=== PATIENT | male | born 1985 | race African-American/Black ===

== ENCOUNTER 2016-05-09 09:35 | Emergency (ER) | payer OTHER ==
[~2016-05-09] VITALS: Ht 195.6 cm; Wt 213.6 kg
[~2016-05-09 09:35] MED LIST: RISP1 PO
[2016-05-09] MEDS ORDERED: RISP1TAB89 PO (09:47)
[2016-05-09] MEDS ORDERED: NAPR500T3 PO (09:47)
[2016-05-09] MEDS ORDERED: KETOROLAC TROMETHAMINE 60 MG/2 ML VIAL IM ONE (10:45)
[2016-05-09 11:19] VITALS: BP 164/97
[2016-05-09 15:27] LABS: GLUCOSE,POINT OF CARE 127 MG/DL (70-110)
== END 2016-05-09 11:41 | disposition home or self-care (01) ==
LOC: EDUNIT# 09:35 → EMS 09:36
DX: S39.012A Strain of muscle, fascia and tendon of lower back, initial encounter (principal); E11.9 Type 2 diabetes mellitus without complications; E66.9 Obesity, unspecified; I10 Essential (primary) hypertension; F31.9 Bipolar disorder, unspecified; Z79.1 Long term (current) use of non-steroidal anti-inflammatories (NSAID); Z79.899 Other long term (current) drug therapy; X58.XXXA Exposure to other specified factors, initial encounter; Y93.89 Activity, other specified; Y99.8 Other external cause status; Y92.89 Other specified places as the place of occurrence of the external cause
CPT/HCPCS: 82962; 96372; 99283; J1885

== ENCOUNTER 2016-11-13 11:20 | Emergency (ER) | payer OTHER ==
[~2016-11-13] VITALS: Ht 193 cm; Wt 122.7 kg
[~2016-11-13 11:20] MED LIST changes: +NAPR500T3 PO; -RISP1 PO; +RISP1TAB89 PO
[2016-11-13 11:37] LABS: GLUCOSE,POINT OF CARE 121 MG/DL (70-110)
[2016-11-13] MEDS ORDERED: METF500T4 PO (11:40)
[2016-11-13] MEDS ORDERED: LISI-660 PO (11:40)
[2016-11-13 12:31] VITALS: BP 160/92
== END 2016-11-13 12:44 | disposition home or self-care (01) ==
LOC: EMS 11:24
DX: Z76.0 Encounter for issue of repeat prescription (principal); I10 Essential (primary) hypertension; E11.9 Type 2 diabetes mellitus without complications; F31.9 Bipolar disorder, unspecified; Z79.899 Other long term (current) drug therapy; Z87.891 Personal history of nicotine dependence
CPT/HCPCS: 82962; 99283

== ENCOUNTER 2017-02-14 17:33 | Emergency (ER) | payer OTHER ==
[~2017-02-14] VITALS: Ht 193 cm; Wt 209.1 kg
[~2017-02-14 17:33] MED LIST changes: +LISI-660 PO; +METF500T4 PO; -NAPR500T3 PO; +NAPR500T4 PO
[2017-02-14] MEDS ORDERED: GABA-531 PO (17:39)
[2017-02-14] MEDS ORDERED: ASPI81 PO (17:41)
[2017-02-14] MEDS ORDERED: RISP2 PO (20:06)
[2017-02-14] MEDS ORDERED: RisperiDONE 1 MG TABLET PO ONE (20:15)
[2017-02-14 20:24] VITALS: BP 154/89
== END 2017-02-14 20:31 | disposition home or self-care (01) ==
LOC: EMS 17:34
DX: Z76.0 Encounter for issue of repeat prescription (principal); E11.9 Type 2 diabetes mellitus without complications; I10 Essential (primary) hypertension; Z87.891 Personal history of nicotine dependence
CPT/HCPCS: 99283

== ENCOUNTER 2017-10-23 22:16 | Emergency (ER) | payer OTHER ==
[~2017-10-23] VITALS: Ht 193 cm; Wt 175.0 kg
[~2017-10-23 22:16] MED LIST changes: +ASPI81 PO; +GABA-531 PO; -METF500T4 PO; +METF500T6 PO; -NAPR500T4 PO; -RISP1TAB89 PO; +RISP2 PO
[2017-10-23] MEDS ORDERED: FURO20 PO (22:41)
[2017-10-23] MEDS ORDERED: FAMO20TA8 PO (22:41)
[2017-10-23] MEDS ORDERED: RISP2L PO (22:41)
[2017-10-23 22:43] LABS: GLUCOSE,POINT OF CARE 98 MG/DL (70-110)
[2017-10-24] MEDS ORDERED: HYDROCODONE/ACETAMINOPHEN 5-325 MG TABLET PO ONE (01:30)
[2017-10-24 01:46] LABS: BASOPHILS % (AUTO) 0.7 % (0.0-2.0); HEMOGLOBIN 13.6 g/dL (13.5-17.5); LYMPHOCYTES # (AUTO) 2.3 K/uL (1.0-4.8); LYMPHOCYTES % (AUTO) 28.9 % (22.0-44.0); MEAN CORPUSCULAR HEMOGLOBIN 28.4 pg (26.0-34.0); MEAN CORPUSCULAR HGB CONC 33.9 G/dL (31.0-37.0); MEAN CORPUSCULAR VOLUME 84 fL (80-100); MONOCYTES # (AUTO) 0.7 K/uL (0.1-1.0); MONOCYTES % (AUTO) 8.7 % (2.0-9.0); NEUTROPHILS # (AUTO) 4.8 K/uL (1.8-7.7); NEUTROPHILS % (AUTO) 59.7 % (40.0-70.0); PLATELET COUNT (AUTO) 207 K/uL (150-450); RED BLOOD CELL COUNT(AUTO) 4.78 MIL/uL (4.50-5.90); RED CELL DISTRIBUTION WIDTH 14.2 % (11.5-14.5)
[2017-10-24 01:54] LABS: CARBON DIOXIDE 30 mmol/L (22-29); CHLORIDE 103 mmol/L (98-107); POTASSIUM 3.9 mmol/L (3.5-5.1); SODIUM SERUM 139 mmol/L (136-145)
[2017-10-24 01:55] LABS: ANION GAP 6 mmol/L (8-16); CALCIUM, TOTAL 8.8 mg/dL (8.8-10.5); CREATININE 0.72 mg/dL (0.60-1.30); GLOMERULAR FILTR. RATE CALC > 60 mL/min (>60); GLUCOSE,RANDOM 94 mg/dL (70-110); UREA NITROGEN, BLOOD 10 mg/dL (7-18)
[2017-10-24 01:56] LABS: PROTHROMBIN TIME 10.1 SEC (9.4-11.6)
[2017-10-24 02:00] LABS: ALANINE AMINOTRANSFERASE 23 U/L (12-78); ALBUMIN 3.4 g/dL (3.4-5.0); ALKALINE PHOSPHATASE 96 U/L (46-116); ASPARTATE AMINOTRANSFERASE 13 U/L (15-37); BILIRUBIN,TOTAL 0.4 mg/dL (0.1-1.0); TOTAL PROTEIN, SERUM 7.1 g/dL (6.4-8.2)
[2017-10-24 03:46] VITALS: BP 112/72
== END 2017-10-24 03:45 | disposition home or self-care (01) ==
LOC: EMS 22:19
DX: G89.18 Other acute postprocedural pain (principal); M79.661 Pain in right lower leg; I10 Essential (primary) hypertension; E11.9 Type 2 diabetes mellitus without complications; F31.9 Bipolar disorder, unspecified; Z87.891 Personal history of nicotine dependence
CPT/HCPCS: 93971; 99285

== ENCOUNTER 2018-10-25 16:32 | Inpatient (IN) | payer MEDICAID, OTHER ==
[~2018-10-25] VITALS: Ht 195.6 cm; Wt 161.6 kg
[~2018-10-25 16:32] MED LIST changes: +ALBU8HFA IH; -ASPI81 PO; +HYDR25TA PO; -LISI-660 PO; -METF500T6 PO; -RISP2 PO; +RISP2L PO
[2018-10-25 17:53] LABS: BASOPHILS % (AUTO) 0.6 % (0.0-2.0); EOSINOPHILS % (AUTO) 2.4 % (1.0-6.0); HEMATOCRIT 37.6 % (41-53); HEMOGLOBIN 12.4 g/dL (13.5-17.5); LYMPHOCYTES # (AUTO) 1.7 K/uL (1.0-4.8); LYMPHOCYTES % (AUTO) 21.6 % (22.0-44.0); MEAN CORPUSCULAR HEMOGLOBIN 28.6 pg (26.0-34.0); MEAN CORPUSCULAR HGB CONC 33.1 G/dL (31.0-37.0); MEAN CORPUSCULAR VOLUME 87 fL (80-100); MONOCYTES # (AUTO) 0.5 K/uL (0.1-1.0); MONOCYTES % (AUTO) 6.3 % (2.0-9.0); NEUTROPHILS # (AUTO) 5.5 K/uL (1.8-7.7); NEUTROPHILS % (AUTO) 69.1 % (40.0-70.0); PLATELET COUNT (AUTO) 225 K/uL (150-450); RED BLOOD CELL COUNT(AUTO) 4.35 MIL/uL (4.50-5.90); RED CELL DISTRIBUTION WIDTH 14.1 % (11.5-14.5)
[2018-10-25 18:01] LABS: ANION GAP 9 mmol/L (8-16); CALCIUM, TOTAL 8.8 mg/dL (8.8-10.5); CARBON DIOXIDE 27 mmol/L (22-29); CHLORIDE 104 mmol/L (98-107); CREATININE 1.11 mg/dL (0.60-1.30); GLOMERULAR FILTR. RATE CALC > 60 mL/min (>60); GLUCOSE,RANDOM 149 mg/dL (70-110); POTASSIUM 3.6 mmol/L (3.5-5.1); SODIUM SERUM 140 mmol/L (136-145); UREA NITROGEN, BLOOD 11 mg/dL (7-18)
[2018-10-25 18:08] LABS: ALANINE AMINOTRANSFERASE 21 U/L (12-78); ALBUMIN 3.2 g/dL (3.4-5.0); ALKALINE PHOSPHATASE 81 U/L (46-116); ASPARTATE AMINOTRANSFERASE 12 U/L (15-37); BILIRUBIN,TOTAL 0.3 mg/dL (0.1-1.0); TOTAL PROTEIN, SERUM 6.7 g/dL (6.4-8.2)
[2018-10-25] MEDS ORDERED: OLANZapine 5 MG RAPDIS TABLET PO PRN (19:45)
[2018-10-25] MEDS ORDERED: MAG HYDROX/AL HYDROX/SIMETH ES 30 ML SUSPENSION UDCUP PO PRN (19:45)
[2018-10-25] MEDS ORDERED: HydrOXYzine PAMOATE 50 MG CAPSULE PO PRN (19:45)
[2018-10-25] MEDS ORDERED: ACETAMINOPHEN 325 MG TABLET PO PRN (19:45)
[2018-10-25] MEDS ORDERED: ZOLPIDEM TARTRATE 10 MG TABLET PO PRN (19:45)
[2018-10-25] MEDS ORDERED: LOPERAMIDE HCL 2 MG CAPSULE PO PRN (19:45)
[2018-10-25] MEDS ORDERED: MAGNESIUM HYDROXIDE SUSPENSION 30 ML UDCUP PO PRN (19:45)
[2018-10-25] MEDS ORDERED: TUBERCULIN, PURIFIED PROTEIN DERIVATIVE 5 TU/0.1 ML SYRINGE ID ONE (19:45)
[2018-10-25] MEDS ORDERED: PROMETHAZINE HCL 25 MG TABLET PO PRN (19:45)
[2018-10-25] MEDS ORDERED: GuaiFENesin/D-METHORPHAN [SUGAR-FREE] 200-20MG/10 ML SYRUP UDCUP PO PRN (19:45)
[2018-10-25] MEDS ORDERED: OLANZapine 5 MG RAPDIS TABLET PO SCH (21:00)
[2018-10-25 21:48] VITALS: BP 124/70
[2018-10-25] MEDS: THIAMINE HCL 100 MG TABLET PO SCH (21:56)
[2018-10-25] MEDS: GABAPENTIN 400 MG CAPSULE PO SCH (21:56)
[2018-10-25] MEDS ORDERED: ALBUTEROL SULFATE HFA 90 MCG/PUFF 8 GM INHALER IH PRN (22:15)
[2018-10-26] MEDS: LORazepam 2 MG TABLET PO PRN ×3 (06:32→16:27)
[2018-10-26 07:09] VITALS: BP 123/78
[2018-10-26 07:37] LABS: BASOPHILS % (AUTO) 0.6 % (0.0-2.0); EOSINOPHILS % (AUTO) 2.6 % (1.0-6.0); HEMOGLOBIN 13.9 g/dL (13.5-17.5); LYMPHOCYTES # (AUTO) 1.8 K/uL (1.0-4.8); LYMPHOCYTES % (AUTO) 22.5 % (22.0-44.0); MEAN CORPUSCULAR HEMOGLOBIN 28.7 pg (26.0-34.0); MEAN CORPUSCULAR VOLUME 87 fL (80-100); MONOCYTES # (AUTO) 0.6 K/uL (0.1-1.0); MONOCYTES % (AUTO) 7.8 % (2.0-9.0); NEUTROPHILS # (AUTO) 5.4 K/uL (1.8-7.7); NEUTROPHILS % (AUTO) 66.5 % (40.0-70.0); PLATELET COUNT (AUTO) 233 K/uL (150-450); RED BLOOD CELL COUNT(AUTO) 4.84 MIL/uL (4.50-5.90)
[2018-10-26 07:51] LABS: HEMOGLOBIN A1C 5.7 % (4.5-6.2)
[2018-10-26 08:05] LABS: ALANINE AMINOTRANSFERASE 22 U/L (12-78); ALBUMIN 3.6 g/dL (3.4-5.0); ALKALINE PHOSPHATASE 89 U/L (46-116); ANION GAP 9 mmol/L (8-16); ASPARTATE AMINOTRANSFERASE 16 U/L (15-37); BILIRUBIN,TOTAL 0.5 mg/dL (0.1-1.0); CALCIUM, TOTAL 9.2 mg/dL (8.8-10.5); CARBON DIOXIDE 28 mmol/L (22-29); CHLORIDE 101 mmol/L (98-107); CHOL/HDL RATIO 2.6 (4.2-7.3); CHOLESTEROL 108 mg/dL (131-200); CREATININE 0.95 mg/dL (0.60-1.30); GLOMERULAR FILTR. RATE CALC > 60 mL/min (>60); GLUCOSE,RANDOM 120 mg/dL (70-110); HDL CHOLESTEROL 41 mg/dL (40-60); LDL CHOL (CALC.) 57 mg/dL (0-130); POTASSIUM 3.6 mmol/L (3.5-5.1); SODIUM SERUM 138 mmol/L (136-145); THYROID STIMULATING HORMONE 0.57 uIU/mL (0.36-3.74); TOTAL PROTEIN, SERUM 7.9 g/dL (6.4-8.2); TRIGLYCERIDES 51 mg/dL (15-150); UREA NITROGEN, BLOOD 8 mg/dL (7-18)
[2018-10-26 08:29] VITALS: BP 120/82
[2018-10-26] MEDS: GABAPENTIN 400 MG CAPSULE PO SCH ×3 (08:48→16:27)
[2018-10-26] MEDS: THIAMINE HCL 100 MG TABLET PO SCH ×2 (08:48→16:27)
[2018-10-26] MEDS ORDERED: HYDROCHLOROTHIAZIDE 25 MG TABLET PO SCH (09:00)
[2018-10-26] MEDS ORDERED: MULTIVITAMINS WITH MINERALS, THERAPEUTIC TABLET PO SCH (09:00)
[2018-10-26] MEDS ORDERED: FOLIC ACID 1 MG TABLET PO SCH (09:00)
[2018-10-26] MEDS ORDERED: NALTREXONE HCL 50 MG TABLET PO SCH (09:00)
[2018-10-26 16:00] VITALS: BP 129/89
[2018-10-26] MEDS ORDERED: GABA-533 PO (16:38)
[2018-10-26] MEDS ORDERED: NALT50TA PO (16:38)
[2018-10-26] MEDS ORDERED: RISP3 PO (16:38)
[2018-10-26] MEDS ORDERED: RisperiDONE 0.5 MG TABLET PO PRN (16:45)
[2018-10-26] MEDS ORDERED: NALT50TA6 PO (17:43)
[2018-10-26] MEDS ORDERED: RisperiDONE 3 MG TABLET PO SCH (21:00)
== END 2018-10-26 18:15 | disposition home or self-care (01) | DRG 750 ==
LOC: EMS 16:33 → B3A 19:58
PROVIDERS: ADMIT Psychiatry & Neurology Psychiatry; ATTEND Psychiatry & Neurology Psychiatry
DX: F25.9 Schizoaffective disorder, unspecified (principal); Z68.41 Body mass index [BMI] 40.0-44.9, adult; F12.90 Cannabis use, unspecified, uncomplicated; F14.90 Cocaine use, unspecified, uncomplicated; D64.9 Anemia, unspecified; S50.02XA Contusion of left elbow, initial encounter; F31.9 Bipolar disorder, unspecified; E66.9 Obesity, unspecified; H60.90 Unspecified otitis externa, unspecified ear; I10 Essential (primary) hypertension; J45.909 Unspecified asthma, uncomplicated; S86.911A Strain of unspecified muscle(s) and tendon(s) at lower leg level, right leg, initial encounter; S33.5XXA Sprain of ligaments of lumbar spine, initial encounter; X58.XXXA Exposure to other specified factors, initial encounter; Y93.89 Activity, other specified; Y92.89 Other specified places as the place of occurrence of the external cause; Y99.8 Other external cause status; Z83.3 Family history of diabetes mellitus; Z91.14 Patient's other noncompliance with medication regimen; Z91.19 Patient's noncompliance with other medical treatment and regimen; Z98.84 Bariatric surgery status
CPT/HCPCS: 83036; 84439; 84443; 86592; G0480

== ENCOUNTER 2018-10-27 04:34 | Emergency (ER) | payer MEDICAID, OTHER ==
[~2018-10-27 04:34] MED LIST changes: -ALBU8HFA IH; +GABA-533 PO; -HYDR25TA PO; +NALT50TA PO; +NALT50TA6 PO; +RISP3 PO
== END 2018-10-27 05:14 | disposition left against medical advice (07) ==
LOC: EMS 04:37
DX: Z53.21 Procedure and treatment not carried out due to patient leaving prior to being seen by health care provider (principal)

== ENCOUNTER 2018-10-27 05:13 | Emergency (ER) | payer OTHER ==
[~2018-10-27] VITALS: Ht 195.6 cm; Wt 159.0 kg
[2018-10-27 09:54] LABS: AMPHET/METH SCREEN,URINE NEGATIVE (NEGATIVE); BARBITURATE SCREEN, URINE NEGATIVE (NEGATIVE); BENZODIAZEPINES SCREEN,URINE NEGATIVE (NEGATIVE); CANNABINOID SCREEN,URINE POSITIVE (NEGATIVE); COCAINE SCREEN,URINE POSITIVE (NEGATIVE); METHADONE SCREEN, URINE NEGATIVE (NEGATIVE); OPIATE SCREEN,URINE NEGATIVE (NEGATIVE)
[2018-10-27] MEDS ORDERED: IBUPROFEN 800 MG TABLET PO ONE (10:00)
[2018-10-27 10:01] LABS: PHENCYCLIDINE SCREEN,URINE NEGATIVE (NEGATIVE)
[2018-10-27 11:56] LABS: BASOPHILS % (AUTO) 0.5 % (0.0-2.0); EOSINOPHILS % (AUTO) 3.5 % (1.0-6.0); HEMATOCRIT 38.8 % (41-53); LYMPHOCYTES # (AUTO) 1.9 K/uL (1.0-4.8); LYMPHOCYTES % (AUTO) 21.4 % (22.0-44.0); MEAN CORPUSCULAR HGB CONC 33.6 G/dL (31.0-37.0); MEAN CORPUSCULAR VOLUME 86 fL (80-100); MONOCYTES # (AUTO) 0.7 K/uL (0.1-1.0); MONOCYTES % (AUTO) 7.6 % (2.0-9.0); PLATELET COUNT (AUTO) 207 K/uL (150-450); RED BLOOD CELL COUNT(AUTO) 4.49 MIL/uL (4.50-5.90); RED CELL DISTRIBUTION WIDTH 14.3 % (11.5-14.5)
[2018-10-27 12:37] LABS: ANION GAP 12 mmol/L (8-16); CALCIUM, TOTAL 8.9 mg/dL (8.8-10.5); CARBON DIOXIDE 27 mmol/L (22-29); CHLORIDE 104 mmol/L (98-107); CREATININE 0.81 mg/dL (0.60-1.30); GLOMERULAR FILTR. RATE CALC > 60 mL/min (>60); GLUCOSE,RANDOM 102 mg/dL (70-110); SODIUM SERUM 143 mmol/L (136-145); UREA NITROGEN, BLOOD 12 mg/dL (7-18)
[2018-10-27 12:49] LABS: ALANINE AMINOTRANSFERASE 22 U/L (12-78); ALBUMIN 3.5 g/dL (3.4-5.0); ALKALINE PHOSPHATASE 85 U/L (46-116); ASPARTATE AMINOTRANSFERASE 18 U/L (15-37); BILIRUBIN,TOTAL 0.2 mg/dL (0.1-1.0); TOTAL PROTEIN, SERUM 7.4 g/dL (6.4-8.2)
[2018-10-27 12:51] VITALS: BP 143/97
== END 2018-10-27 13:20 | disposition home or self-care (01) ==
LOC: EMS 05:15
DX: F31.9 Bipolar disorder, unspecified (principal); F20.9 Schizophrenia, unspecified; R45.850 Homicidal ideations; M79.644 Pain in right finger(s); I10 Essential (primary) hypertension; J45.909 Unspecified asthma, uncomplicated; F12.90 Cannabis use, unspecified, uncomplicated; F14.90 Cocaine use, unspecified, uncomplicated; Z79.899 Other long term (current) drug therapy
CPT/HCPCS: 36415; 73130; 80053; 80307; 85025; 99285; G0480

== ENCOUNTER 2018-11-09 11:09 | Emergency (ER) | payer OTHER ==
[~2018-11-09] VITALS: Ht 195.6 cm; Wt 140.9 kg
[2018-11-09 13:35] VITALS: BP 134/81
== END 2018-11-09 13:54 | disposition home or self-care (01) ==
LOC: EMS 11:11
DX: R45.1 Restlessness and agitation (principal); F17.210 Nicotine dependence, cigarettes, uncomplicated; J45.909 Unspecified asthma, uncomplicated; F31.9 Bipolar disorder, unspecified; F20.9 Schizophrenia, unspecified; I10 Essential (primary) hypertension; F14.90 Cocaine use, unspecified, uncomplicated; F12.90 Cannabis use, unspecified, uncomplicated; Z59.0 Homelessness
CPT/HCPCS: 99406

== ENCOUNTER 2022-11-27 03:12 | Emergency (ER) | payer OTHER ==
[~2022-11-27] VITALS: Ht 195.6 cm; Wt 159.1 kg
[~2022-11-27 03:12] MED LIST changes: +GABA-1181 PO; -GABA-531 PO; -GABA-533 PO; +GABA-534 PO; +RISP1SOL11 PO; -RISP2L PO; -RISP3 PO; +RISP3TAB35 PO
[2022-11-27] MEDS ORDERED: KETOROLAC TROMETHAMINE 60 MG/2 ML VIAL IM ONE (04:30)
[2022-11-27] MEDS ORDERED: FUROSEMIDE 20 MG TABLET PO ONE (04:30)
[2022-11-27 05:30] VITALS: BP 132/69; PULSE 70; RESP 16; TEMP 98.3
== END 2022-11-27 05:30 | disposition home or self-care (01) ==
LOC: EMS 03:12
DX: R60.9 Edema, unspecified (principal); J45.909 Unspecified asthma, uncomplicated; F31.9 Bipolar disorder, unspecified; I10 Essential (primary) hypertension; F20.9 Schizophrenia, unspecified; F12.90 Cannabis use, unspecified, uncomplicated; F14.90 Cocaine use, unspecified, uncomplicated; Z98.890 Other specified postprocedural states
CPT/HCPCS: 99283; 96372; J1885

== ENCOUNTER 2022-12-01 06:19 | Emergency (ER) | payer OTHER ==
[~2022-12-01] VITALS: Ht 177.8 cm; Wt 92.0 kg
[2022-12-01 06:21] VITALS: TEMP 98.4
[2022-12-01] MEDS ORDERED: POVIDONE-IODINE 10% 240 ML SOLUTION TP ONE (07:15)
[2022-12-01] MEDS ORDERED: CEPH-558 PO (08:28)
[2022-12-01] MEDS ORDERED: LIDOCAINE/PF 1% 2 ML VIAL IM ONE (08:30)
[2022-12-01] MEDS ORDERED: CefTRIAXone SODIUM 1 GM/VIAL IM ONE (08:30)
[2022-12-01 09:00] VITALS: BP 112/72; PULSE 75; RESP 14
== END 2022-12-01 10:08 | disposition home or self-care (01) ==
LOC: EMS 06:19
DX: T69.022A Immersion foot, left foot, initial encounter (principal); T69.021A Immersion foot, right foot, initial encounter; L08.9 Local infection of the skin and subcutaneous tissue, unspecified; R60.1 Generalized edema; J45.909 Unspecified asthma, uncomplicated; F31.9 Bipolar disorder, unspecified; I10 Essential (primary) hypertension; F20.9 Schizophrenia, unspecified; F12.90 Cannabis use, unspecified, uncomplicated; F14.90 Cocaine use, unspecified, uncomplicated; Z98.890 Other specified postprocedural states
CPT/HCPCS: 99283; 96372; J0696; J3490

== ENCOUNTER 2022-12-04 13:34 | Emergency (ER) | payer OTHER ==
[~2022-12-04] VITALS: Ht 193 cm; Wt 150.0 kg
[~2022-12-04 13:34] MED LIST changes: +CEPH-558 PO
[2022-12-04 14:33] VITALS: BP 122/93; PULSE 93; RESP 18; TEMP 99.3
== END 2022-12-04 15:48 ==
LOC: EMS 13:37
DX: J45.909 Unspecified asthma, uncomplicated; F31.9 Bipolar disorder, unspecified; I10 Essential (primary) hypertension; F20.9 Schizophrenia, unspecified; F14.90 Cocaine use, unspecified, uncomplicated; F12.90 Cannabis use, unspecified, uncomplicated; Z98.890 Other specified postprocedural states
CPT/HCPCS: 82962; 99282

== ENCOUNTER 2023-09-25 07:13 | Emergency (ER) | payer OTHER ==
[~2023-09-25] VITALS: Ht 195.6 cm; Wt 168.2 kg
[~2023-09-25 07:13] MED LIST changes: -NALT50TA PO; +NALT50TA33 PO
[2023-09-25 07:20] VITALS: BP 122/65; PULSE 88; RESP 18; TEMP 98.4
[2023-09-25 07:39] LABS: COVID AG,FIA SOURCE NASAL SWAB
[2023-09-25 08:07] LABS: SARS-COV2 (COVID) ANTIGEN,FIA Negative (Negative)
[2023-09-25 08:08] LABS: INFLUENZA TYPE B NEGATIVE FOR TYPE B (NEGATIVE)
[2023-09-25 08:46] LABS: INFLUENZA TYPE A POSITIVE FOR TYPE A (NEGATIVE)
[2023-09-25] MEDS ORDERED: OSEL75CA45 PO (08:56)
== END 2023-09-25 09:35 | disposition home or self-care (01) ==
LOC: EMS 07:25
DX: J10.1 Influenza due to other identified influenza virus with other respiratory manifestations (principal); R05.9 Cough, unspecified; R50.9 Fever, unspecified; J45.909 Unspecified asthma, uncomplicated; I10 Essential (primary) hypertension; F12.90 Cannabis use, unspecified, uncomplicated; Z20.822 Contact with and (suspected) exposure to COVID-19
CPT/HCPCS: 87804; 99283